=== PATIENT | female | born 1955 | race Caucasian/White ===

== ENCOUNTER 2024-10-22 10:44 | Day surgery (SDC) | payer MEDICARE ==
[~2024-10-22] VITALS: Ht 172.7 cm; Wt 97.2 kg
[~2024-10-22 10:44] MED LIST: ASPI81TA26 PO; D-10TAB3 PO; ELIQ5TAB PO; IRBE150T27 PO; LIDOCAINE 2% 100 MG/5 ML SDV (FOR ANES.) As Ordered ONE; METO1TAB7 PO; ROSU5TAB49 PO; SERT25TA21 PO
[2024-10-22 11:25] VITALS: BP 135/63; O2SAT 97
== END 2024-10-22 11:25 | disposition home or self-care (01) ==
LOC: M OPP 10:44
PROVIDERS: ATTEND Internal Medicine Gastroenterology
DX: Z12.11 Encounter for screening for malignant neoplasm of colon (principal); R19.5 Other fecal abnormalities; K64.0 First degree hemorrhoids; K57.30 Diverticulosis of large intestine without perforation or abscess without bleeding; I48.91 Unspecified atrial fibrillation; G47.30 Sleep apnea, unspecified; Z91.048 Other nonmedicinal substance allergy status; Z79.01 Long term (current) use of anticoagulants; Z79.82 Long term (current) use of aspirin; Z79.899 Other long term (current) drug therapy

== ENCOUNTER 2024-11-10 20:44 | Emergency (ER) | payer MEDICARE, OTHER ==
[~2024-11-10] VITALS: Ht 172.7 cm; Wt 99.4 kg
[~2024-11-10 20:44] MED LIST changes: -LIDOCAINE 2% 100 MG/5 ML SDV (FOR ANES.) As Ordered ONE
[2024-11-11] MEDS: PERCOCET 5MG/325MG TAB PO ONE (00:08)
[2024-11-11 02:10] VITALS: BP 142/88; TEMP 97.6; O2SAT 96
== END 2024-11-11 02:12 | disposition home or self-care (01) ==
LOC: M ED 20:44
DX: S63.501A Unspecified sprain of right wrist, initial encounter (principal); S56.911A Strain of unspecified muscles, fascia and tendons at forearm level, right arm, initial encounter; X50.0XXA Overexertion from strenuous movement or load, initial encounter; K57.30 Diverticulosis of large intestine without perforation or abscess without bleeding; I10 Essential (primary) hypertension; F10.10 Alcohol abuse, uncomplicated; Z91.041 Radiographic dye allergy status; Z86.79 Personal history of other diseases of the circulatory system; Z79.82 Long term (current) use of aspirin; Z79.01 Long term (current) use of anticoagulants; Z79.899 Other long term (current) drug therapy; Y92.9 Unspecified place or not applicable; Y93.89 Activity, other specified; Y99.9 Unspecified external cause status